=== PATIENT | female | born 1935 | race Caucasian/White ===

== ENCOUNTER 2018-07-17 10:49 | Emergency (ER) | payer MEDICARE, OTHER ==
[2018-07-17 11:09] VITALS: RESP 18
--- NOTE | 2018-07-17 12:12 | ED ---
General Adult HPI <Mitchell Henriquez - Last Filed: 07/17/18 13:58> - General Source: patient, EMS, RN notes reviewed Mode of arrival: EMS Limitations: no limitations <Jack Bennett - Last Filed: 07/17/18 14:25> - General Chief complaint: Dizziness Stated complaint: Diff Breathing Time Seen by Provider: 07/17/18 11:11 - History of Present Illness Initial comments: 82-year-old female presents emergency Department with chief complaint of dizziness, shortness of breath and palpitations. Patient states she's also has some chest discomfort. Patient states that she is currently in rehab for right knee replacement. Patient states this was performed by Dr. Parish. Patient states that she is currently on Coumadin. Patient states when she was in the hospital at [facility] she was diagnosed with A. fib. Patient states he she was given amiodarone. Patient is also on metoprolol though she's been having hypotension so she was lower on her medications. Patient sent in for evaluation found to be in A. fib RVR by EMS and on initial exam in the emergency department. (Jack Bennett) - Related Data Home Medications Medication Instructions Recorded Confirmed Cyclobenzaprine [Flexeril] 10 mg PO TID PRN 07/17/18 07/17/18 Hydrocodone/Acetaminophen [[place] 1 tab PO TID PRN 07/17/18 07/17/18 10-325] Latanoprost [Xalatan 0.005%] 1 drop BOTH EYES HS 07/17/18 07/17/18 Lisinopril [Zestril] 10 mg PO DAILY 07/17/18 07/17/18 Metoprolol Succinate [Toprol Xl] 25 mg PO DAILY 07/17/18 07/17/18 Warfarin Sodium 3 mg PO DAILY@1800 07/17/18 07/17/18 Allergies Allergy/AdvReac Type Severity Reaction Status Date / Time No Known Allergies Allergy Verified 07/17/18 12:26 Review of Systems ROS Other: All systems not noted in ROS Statement are negative. <Mitchell Henriquez - Last Filed: 07/17/18 13:58> ROS Other: All systems not noted in ROS Statement are negative. <Jack Bennett - Last Filed: 07/17/18 14:25> ROS Statement: Those systems with pertinent positive or pertinent negative responses have been documented in the HPI. Past Medical History Past Medical History: Cancer Additional Past Medical History / Comment(s): CA polyp in colon History of Any Multi-Drug Resistant Organisms: None Reported Past Surgical History: Coronary Bypass/CABG, Heart Catheterization With Stent, Hysterectomy, Orthopedic Surgery Additional Past Surgical History / Comment(s): knee surgery 2019 Past Psychological History: No Psychological Hx Reported Smoking Status: Former smoker Past Alcohol Use History: Occasional, Rare Past Drug Use History: None Reported <Jack Bennett - Last Filed: 07/17/18 14:25> General Exam Limitations: no limitations General appearance: alert, in no apparent distress Head exam: Present: atraumatic, normocephalic, normal inspection Respiratory exam: Present: normal lung sounds bilaterally. Absent: respiratory distress, wheezes, rales, rhonchi, stridor Cardiovascular Exam: Present: tachycardia, irregular rhythm, normal heart sounds. Absent: regular rate, normal rhythm, systolic murmur, diastolic murmur , rubs, gallop, clicks GI/Abdominal exam: Present: soft, normal bowel sounds. Absent: distended, tenderness, guarding, rebound, rigid Extremities exam: Present: other (Right knee healing incision noted, no erythema pedal pulses equal bilaterally no leg swelling) Skin exam: Present: warm, dry, intact, normal color. Absent: rash <Jack Bennett - Last Filed: 07/17/18 14:25> Course <Mitchell Henriquez - Last Filed: 07/17/18 13:58> <Jack Bennett - Last Filed: 07/17/18 14:25> Vital Signs 07/17/18 07/17/18 10:57 14:00 Temperature 98.1 F Pulse Rate 65 84 Respiratory 18 18 Rate Blood Pressure 114/58 123/63 O2 Sat by Pulse 99 100 Oximetry - Reevaluation(s) Reevaluation #1: 07/17/18 12:11 Patient was in A. fib RVR on monitor. Patient converted while in the room doing exam. (Jack Bennett) EKG Findings - EKG Comments: EKG Findings:: EKG performed at 11:39 normal sinus rhythm with left axis deviation left bundle, rate of 98 AR 160 QRS 122 QT/QTC 392/479 <Jack Bennett - Last Filed: 07/17/18 14:25> Medical Decision Making - Lab Data Result diagrams: 07/17/18 11:55 07/17/18 11:55 <Mitchell Henriquez - Last Filed: 07/17/18 13:58> - Lab Data Result diagrams: 07/17/18 11:55 07/17/18 11:55 <Jack Bennett - Last Filed: 07/17/18 14:25> - Medical Decision Making Patient reevaluated and reexamined by myself, Dr. Henriquez. Patient resting comfortably in bed. Normal sinus rhythm on the monitor. I do agree with the findings. This includes all diagnostic interpretation's and treatment plan. Case was discussed in detail with Dr. Islas, covering for Dr. Cortez, who will admit. Blood transfusion has been ordered. (Mitchell Henriquez) - Lab Data Lab Results 07/17/18 07/17/18 07/17/18 Range/Units 11:55 11:55 11:55 WBC 16.0 H (3.8-10.6) k/uL RBC 1.69 L (3.80-5.40) m/uL Hgb 5.5 L* D (11.4-16.0) gm/dL Hct 16.1 L* (34.0-46.0) % MCV 95.4 D (80.0-100.0) fL MCH 32.5 (25.0-35.0) pg MCHC 34.0 (31.0-37.0) g/dL RDW 13.3 (11.5-15.5) % Plt Count 586 H D (150-450) k/uL Neutrophils % 81 % Lymphocytes % 11 % Monocytes % 4 % Eosinophils % 4 % Basophils % 0 % Neutrophils # 13.0 H (1.3-7.7) k/uL Lymphocytes # 1.7 (1.0-4.8) k/uL Monocytes # 0.6 (0-1.0) k/uL Eosinophils # 0.6 (0-0.7) k/uL Basophils # 0.0 (0-0.2) k/uL PT (9.0-12.0) sec INR (<1.2) APTT (22.0-30.0) sec Sodium 140 (137-145) mmol/L Potassium 4.9 (3.5-5.1) mmol/L Chloride 105 (98-107) mmol/L Carbon Dioxide 27 (22-30) mmol/L Anion Gap 8 mmol/L BUN 19 H (7-17) mg/dL Creatinine 0.98 (0.52-1.04) mg/dL Est GFR (CKD-EPI)AfAm 62 (>60 ml/min/1.73 sqM) Est GFR (CKD-EPI)NonAf 54 (>60 ml/min/1.73 sqM) Glucose 120 H (74-99) mg/dL Calcium 9.6 (8.4-10.2) mg/dL Magnesium 2.4 H (1.6-2.3) mg/dL Total Bilirubin 0.7 (0.2-1.3) mg/dL AST 18 (14-36) U/L ALT 24 (9-52) U/L Alkaline Phosphatase 92 (38-126) U/L Total Creatine Kinase 35 (30-135) U/L CK-MB (CK-2) 1.3 (0.0-2.4) ng/mL CK-MB (CK-2) Rel Index 3.7 Troponin I 0.046 H* (0.000-0.034) ng/mL Total Protein 6.3 (6.3-8.2) g/dL Albumin 3.7 (3.5-5.0) g/dL Stool Occult Blood (Negative) Blood Type Blood Type Recheck Antibody Screen Spec Expiration Date 07/17/18 07/17/18 07/17/18 Range/Units 11:55 11:55 12:50 WBC (3.8-10.6) k/uL RBC (3.80-5.40) m/uL Hgb (11.4-16.0) gm/dL Hct (34.0-46.0) % MCV (80.0-100.0) fL MCH (25.0-35.0) pg MCHC (31.0-37.0) g/dL RDW (11.5-15.5) % Plt Count (150-450) k/uL Neutrophils % % Lymphocytes % % Monocytes % % Eosinophils % % Basophils % % Neutrophils # (1.3-7.7) k/uL Lymphocytes # (1.0-4.8) k/uL Monocytes # (0-1.0) k/uL Eosinophils # (0-0.7) k/uL Basophils # (0-0.2) k/uL PT 21.8 H (9.0-12.0) sec INR 2.2 H (<1.2) APTT 34.1 H (22.0-30.0) sec Sodium (137-145) mmol/L Potassium (3.5-5.1) mmol/L Chloride (98-107) mmol/L Carbon Dioxide (22-30) mmol/L Anion Gap mmol/L BUN (7-17) mg/dL Creatinine (0.52-1.04) mg/dL Est GFR (CKD-EPI)AfAm (>60 ml/min/1.73 sqM) Est GFR (CKD-EPI)NonAf (>60 ml/min/1.73 sqM) Glucose (74-99) mg/dL Calcium (8.4-10.2) mg/dL Magnesium (1.6-2.3) mg/dL Total Bilirubin (0.2-1.3) mg/dL AST (14-36) U/L ALT (9-52) U/L Alkaline Phosphatase (38-126) U/L Total Creatine Kinase (30-135) U/L CK-MB (CK-2) (0.0-2.4) ng/mL CK-MB (CK-2) Rel Index Troponin I (0.000-0.034) ng/mL Total Protein (6.3-8.2) g/dL Albumin (3.5-5.0) g/dL Stool Occult Blood Negative (Negative) Blood Type B Positive Blood Type Recheck CABO Indicated Antibody Screen NEGATIVE Spec Expiration Date 07/20/2018 - 4667 Critical Care Time <Mitchell Henriquez - Last Filed: 07/17/18 13:58> Critical Care Time: Yes Total Critical Care Time: 35 <Jack Bennett - Last Filed: 07/17/18 14:25> Critical Care Time: Critical care time including 35 minutes were use this is include initial exam, diagnostic including laboratory, EKG, chest x-ray. Patient's found to be initially in A. fib with RVR though converted with no treatment at this time. Patient's found to be severely anemic with hemoglobin 5.5, Hemoccult was obtained which is negative. Patient is anticoagulated though no signs of bleeding. Patient be transfused 2 units at this time. Patient will have repeat H&H. Case discussed with admitting physician. Coumadin will be held at this time. Patient will have cardiology evaluation for proximal A. fib. Patient placed on telemetry for proximal A. fib and further monitoring. Family , patient updated on results. (Jack Bennett) Disposition <Mitchell Henriquez - Last Filed: 07/17/18 13:58> <Jack Bennett - Last Filed: 07/17/18 14:25> Clinical Impression: Anemia, Paroxysmal atrial fibrillation with rapid ventricular response Disposition: ADMITTED IP TO THIS HOSP Condition: Fair Referrals: Daniel Fernandez MD [Primary Care Provider] - 1-2 days
--- NOTE | 2018-07-17 12:26 | XR ---
EXAMINATION TYPE: XR chest 2V DATE OF EXAM: 07/17/2018 COMPARISON: NONE HISTORY: Syncope and shortness of breath today. TECHNIQUE: Frontal and lateral views of the chest are obtained. FINDINGS: There is chronic parenchymal change with upper lung pleural/parenchymal scarring most promi nent in the apices. There is no suspicious focal air space opacity or pneumothorax seen. Chronic blun ting bilateral posterior and right lateral costophrenic angles suggest small to tiny effusions. The c ardiac silhouette size is enlarged. The osseous structures are intact. IMPRESSION: Cardiomegaly and chronic brachial changes with small to tiny right greater than left pleu ral effusions but no suspicious focal acute infiltrate.
[2018-07-17 12:41] LABS: Basophils % (A) 0 %; Eosinophils # (A) 0.6 k/uL (0-0.7); Eosinophils % (A) 4 %; Lymphocytes # (A) 1.7 k/uL (1.0-4.8); Lymphocytes % (A) 11 %; MCH 32.5 pg (25.0-35.0); Mean Platelet Volume 6.6; Monocytes # (A) 0.6 k/uL (0-1.0); Monocytes % (A) 4 %; Neutrophils % (A) 81 %; RBC 1.69 m/uL (3.80-5.40); RDW 13.3 % (11.5-15.5)
[2018-07-17 12:46] LABS: HGB 5.5 gm/dL (11.4-16.0)
[2018-07-17 12:47] LABS: HCT 16.1 % (34.0-46.0); MCV 95.4 fL (80.0-100.0); Platelet Count 586 k/uL (150-450)
[2018-07-17 12:57] LABS: INR 2.2 (<1.2); Partial Thromboplastin Time 34.1 sec (22.0-30.0); Prothrombin Time 21.8 sec (9.0-12.0)
[2018-07-17 12:59] LABS: Albumin 3.7 g/dL (3.5-5.0); Calcium 9.6 mg/dL (8.4-10.2); Magnesium 2.4 mg/dL (1.6-2.3); Potassium 4.9 mmol/L (3.5-5.1); Total Bilirubin 0.7 mg/dL (0.2-1.3); Total Protein 6.3 g/dL (6.3-8.2)
[2018-07-17 13:20] LABS: Creatine Kinase MB 1.3 ng/mL (0.0-2.4)
[2018-07-17 13:22] LABS: Troponin I 0.046 ng/mL (0.000-0.034)
[2018-07-17] MEDS ORDERED: NITROGLYCERIN SL TABS 0.4 MG TAB SUBLINGUAL PRN (14:25)
[2018-07-17] MEDS ORDERED: PHYTONADIONE ORAL 5 MG/5 ML ORAL.SYRG PO STA (15:29)
--- NOTE | 2018-07-17 15:44 | ED ---
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 case discussed with [facility] accepts transfer. - Lab Data Result diagrams: 07/17/18 11:55 07/17/18 11:55 Lab Results 07/17/18 07/17/18 07/17/18 Range/Units 11:55 11:55 11:55 WBC 16.0 H (3.8-10.6) k/uL RBC 1.69 L (3.80-5.40) m/uL Hgb 5.5 L* D (11.4-16.0) gm/dL Hct 16.1 L* (34.0-46.0) % MCV 95.4 D (80.0-100.0) fL MCH 32.5 (25.0-35.0) pg MCHC 34.0 (31.0-37.0) g/dL RDW 13.3 (11.5-15.5) % Plt Count 586 H D (150-450) k/uL Neutrophils % 81 % Lymphocytes % 11 % Monocytes % 4 % Eosinophils % 4 % Basophils % 0 % Neutrophils # 13.0 H (1.3-7.7) k/uL Lymphocytes # 1.7 (1.0-4.8) k/uL Monocytes # 0.6 (0-1.0) k/uL Eosinophils # 0.6 (0-0.7) k/uL Basophils # 0.0 (0-0.2) k/uL PT (9.0-12.0) sec INR (<1.2) APTT (22.0-30.0) sec Sodium 140 (137-145) mmol/L Potassium 4.9 (3.5-5.1) mmol/L Chloride 105 (98-107) mmol/L Carbon Dioxide 27 (22-30) mmol/L Anion Gap 8 mmol/L BUN 19 H (7-17) mg/dL Creatinine 0.98 (0.52-1.04) mg/dL Est GFR (CKD-EPI)AfAm 62 (>60 ml/min/1.73 sqM) Est GFR (CKD-EPI)NonAf 54 (>60 ml/min/1.73 sqM) Glucose 120 H (74-99) mg/dL Calcium 9.6 (8.4-10.2) mg/dL Magnesium 2.4 H (1.6-2.3) mg/dL Total Bilirubin 0.7 (0.2-1.3) mg/dL AST 18 (14-36) U/L ALT 24 (9-52) U/L Alkaline Phosphatase 92 (38-126) U/L Total Creatine Kinase 35 (30-135) U/L CK-MB (CK-2) 1.3 (0.0-2.4) ng/mL CK-MB (CK-2) Rel Index 3.7 Troponin I 0.046 H* (0.000-0.034) ng/mL Total Protein 6.3 (6.3-8.2) g/dL Albumin 3.7 (3.5-5.0) g/dL Stool Occult Blood (Negative) Blood Type Blood Type Confirm Blood Type Recheck Antibody Screen Crossmatch Spec Expiration Date 07/17/18 07/17/18 07/17/18 Range/Units 11:55 11:55 12:50 WBC (3.8-10.6) k/uL RBC (3.80-5.40) m/uL Hgb (11.4-16.0) gm/dL Hct (34.0-46.0) % MCV (80.0-100.0) fL MCH (25.0-35.0) pg MCHC (31.0-37.0) g/dL RDW (11.5-15.5) % Plt Count (150-450) k/uL Neutrophils % % Lymphocytes % % Monocytes % % Eosinophils % % Basophils % % Neutrophils # (1.3-7.7) k/uL Lymphocytes # (1.0-4.8) k/uL Monocytes # (0-1.0) k/uL Eosinophils # (0-0.7) k/uL Basophils # (0-0.2) k/uL PT 21.8 H (9.0-12.0) sec INR 2.2 H (<1.2) APTT 34.1 H (22.0-30.0) sec Sodium (137-145) mmol/L Potassium (3.5-5.1) mmol/L Chloride (98-107) mmol/L Carbon Dioxide (22-30) mmol/L Anion Gap mmol/L BUN (7-17) mg/dL Creatinine (0.52-1.04) mg/dL Est GFR (CKD-EPI)AfAm (>60 ml/min/1.73 sqM) Est GFR (CKD-EPI)NonAf (>60 ml/min/1.73 sqM) Glucose (74-99) mg/dL Calcium (8.4-10.2) mg/dL Magnesium (1.6-2.3) mg/dL Total Bilirubin (0.2-1.3) mg/dL AST (14-36) U/L ALT (9-52) U/L Alkaline Phosphatase (38-126) U/L Total Creatine Kinase (30-135) U/L CK-MB (CK-2) (0.0-2.4) ng/mL CK-MB (CK-2) Rel Index Troponin I (0.000-0.034) ng/mL Total Protein (6.3-8.2) g/dL Albumin (3.5-5.0) g/dL Stool Occult Blood Negative (Negative) Blood Type B Positive Blood Type Confirm Blood Type Recheck CABO Indicated Antibody Screen NEGATIVE Crossmatch See Detail Spec Expiration Date 07/20/2018 - 1253 07/17/18 Range/Units 14:05 WBC (3.8-10.6) k/uL RBC (3.80-5.40) m/uL Hgb (11.4-16.0) gm/dL Hct (34.0-46.0) % MCV (80.0-100.0) fL MCH (25.0-35.0) pg MCHC (31.0-37.0) g/dL RDW (11.5-15.5) % Plt Count (150-450) k/uL Neutrophils % % Lymphocytes % % Monocytes % % Eosinophils % % Basophils % % Neutrophils # (1.3-7.7) k/uL Lymphocytes # (1.0-4.8) k/uL Monocytes # (0-1.0) k/uL Eosinophils # (0-0.7) k/uL Basophils # (0-0.2) k/uL PT (9.0-12.0) sec INR (<1.2) APTT (22.0-30.0) sec Sodium (137-145) mmol/L Potassium (3.5-5.1) mmol/L Chloride (98-107) mmol/L Carbon Dioxide (22-30) mmol/L Anion Gap mmol/L BUN (7-17) mg/dL Creatinine (0.52-1.04) mg/dL Est GFR (CKD-EPI)AfAm (>60 ml/min/1.73 sqM) Est GFR (CKD-EPI)NonAf (>60 ml/min/1.73 sqM) Glucose (74-99) mg/dL Calcium (8.4-10.2) mg/dL Magnesium (1.6-2.3) mg/dL Total Bilirubin (0.2-1.3) mg/dL AST (14-36) U/L ALT (9-52) U/L Alkaline Phosphatase (38-126) U/L Total Creatine Kinase (30-135) U/L CK-MB (CK-2) (0.0-2.4) ng/mL CK-MB (CK-2) Rel Index Troponin I (0.000-0.034) ng/mL Total Protein (6.3-8.2) g/dL Albumin (3.5-5.0) g/dL Stool Occult Blood (Negative) Blood Type Blood Type Confirm B Positive Blood Type Recheck Antibody Screen Crossmatch Spec Expiration Date Disposition Clinical Impression: Anemia, Paroxysmal atrial fibrillation with rapid ventricular response Disposition: OTHER INSTITUTION NOT DEFINED Condition: Fair Referrals: Daniel Fernandez MD [Primary Care Provider] - 1-2 days - Out of Hospital Transfer - Req. Specs Out of Hospital Transfer - Requested Specifics: Other Emergency Center ([facility]) Procedures - [place] Protocol (Time Out) Nurse: Iva Flores
[2018-07-17 17:05] VITALS: BP 123/72; PULSE 88; TEMP 98.4
== END 2018-07-17 17:05 | disposition other institution (70) ==
LOC: EC 10:49 → 3SCARD 13:59 → UNDOADMIN 13:59 → EC 17:05
DX: I48.0 Paroxysmal atrial fibrillation (principal); D64.9 Anemia, unspecified; Z85.038 Personal history of other malignant neoplasm of large intestine; Z87.891 Personal history of nicotine dependence; Z79.01 Long term (current) use of anticoagulants; Z79.899 Other long term (current) drug therapy; Z95.1 Presence of aortocoronary bypass graft; Z95.5 Presence of coronary angioplasty implant and graft; Z96.651 Presence of right artificial knee joint
CPT/HCPCS: 36415; 93005; 86900; 86901; 80053; 82550; 82553; 83735; 84484; 85025; 85610; 85730; 86850; 86920; 82272; 71046; 99291; P9016

== ENCOUNTER 2019-05-09 22:43 | Emergency (ER) | payer MEDICARE, OTHER ==
[2019-05-09 22:49] VITALS: BP 179/69; PULSE 58; RESP 20; TEMP 97.9
[2019-05-09] MEDS ORDERED: LIDOCAINE/EPINEPHR/TETRACAINE 5 ML BOTTLE TOPICAL ONE (22:58)
--- NOTE | 2019-05-09 23:36 | ED ---
General Adult HPI - General Chief complaint: Wound/Laceration Stated complaint: Arm Laceration Time Seen by Provider: 05/09/19 22:50 Source: patient, RN notes reviewed Mode of arrival: ambulatory Limitations: no limitations - History of Present Illness Initial comments: 83-year-old female presents to the emergency department for a chief complaint of laceration to the left arm. This occurred about 8 hours ago. She was opening a screen door when it caught the landing hit her arm. No other injuries. Patient is up-to-date on tetanus Within the past year. Patient has no other complaints at this time including shortness of breath, chest pain, abdominal pain, nausea or vomiting, headache, or visual changes. - Related Data Home Medications Medication Instructions Recorded Confirmed Cyclobenzaprine [Flexeril] 10 mg PO TID PRN 07/17/18 07/17/18 Hydrocodone/Acetaminophen [[place] 1 tab PO TID PRN 07/17/18 07/17/18 10-325] Latanoprost [Xalatan 0.005%] 1 drop BOTH EYES HS 07/17/18 07/17/18 Lisinopril [Zestril] 10 mg PO DAILY 07/17/18 07/17/18 Metoprolol Succinate [Toprol Xl] 25 mg PO DAILY 07/17/18 07/17/18 Warfarin Sodium 3 mg PO DAILY@1800 07/17/18 07/17/18 Allergies Allergy/AdvReac Type Severity Reaction Status Date / Time amoxicillin [From Augmentin] Allergy Swelling Verified 05/09/19 22:50 clavulanic acid Allergy Swelling Verified 05/09/19 22:50 [From Augmentin] Review of Systems ROS Statement: Those systems with pertinent positive or pertinent negative responses have been documented in the HPI. ROS Other: All systems not noted in ROS Statement are negative. Past Medical History Past Medical History: Cancer Additional Past Medical History / Comment(s): CA polyp in colon History of Any Multi-Drug Resistant Organisms: None Reported Past Surgical History: Coronary Bypass/CABG, Heart Catheterization With Stent, Hysterectomy, Orthopedic Surgery Additional Past Surgical History / Comment(s): knee surgery 2019 Past Psychological History: No Psychological Hx Reported Smoking Status: Former smoker Past Alcohol Use History: Occasional, Rare Past Drug Use History: None Reported General Exam Limitations: no limitations General appearance: alert, in no apparent distress Head exam: Present: atraumatic, normocephalic, normal inspection Eye exam: Present: normal appearance, PERRL, EOMI. Absent: scleral icterus, conjunctival injection, periorbital swelling ENT exam: Present: normal exam, mucous membranes moist Neck exam: Present: normal inspection. Absent: tenderness, meningismus, lymphadenopathy Respiratory exam: Present: normal lung sounds bilaterally. Absent: respiratory distress, wheezes, rales, rhonchi, stridor Cardiovascular Exam: Present: regular rate, normal rhythm, normal heart sounds. Absent: systolic murmur, diastolic murmur, rubs, gallop, clicks Extremities exam: Present: other (She has a 4 cm skin tear noted to the dorsal left mid forearm. Neurovascular status intact, radial pulse 2+) Course Vital Signs 05/09/19 22:47 Temperature 97.9 F Pulse Rate 58 L Respiratory 20 Rate Blood Pressure 179/69 O2 Sat by Pulse 99 Oximetry Medical Decision Making - Medical Decision Making She has a very superficial 4 cm skin tear of the left dorsal forearm. Patient minimal bleeding from this area. Wound was irrigated. Let solution was applied. Bleeding controlled. I was unable to approximate the wound margins given timeframe of skin tear occurring. Steri-Strips were applied to cover the open area. Discussed signs of infection and return parameters. Discussed returning if she has any worsening symptoms. Disposition Clinical Impression: Skin tear Disposition: HOME SELF-CARE Condition: Good Instructions (If sedation given, give patient instructions): Steristrips (ED) Additional Instructions: Please try to keep area dry. Let Steri-Strips fall off on their own. Monitor for any signs of infection such as spreading or streaking redness, drainage, or fever return to the emergency department. Otherwise follow-up with primary care for a wound recheck in 1-2 days. Is patient prescribed a controlled substance at d/c from ED?: No Referrals: Daniel Fernandez MD [Primary Care Provider] - 1-2 days Time of Disposition: 23:37
== END 2019-05-09 23:42 | disposition home or self-care (01) ==
LOC: EC 22:43
DX: S41.112A Laceration without foreign body of left upper arm, initial encounter (principal); Z79.01 Long term (current) use of anticoagulants; Z79.899 Other long term (current) drug therapy; Z88.0 Allergy status to penicillin; Z88.8 Allergy status to other drugs, medicaments and biological substances; Z95.5 Presence of coronary angioplasty implant and graft; Z95.1 Presence of aortocoronary bypass graft; Z87.891 Personal history of nicotine dependence; Z86.010 Personal history of colon polyps; W26.8XXA Contact with other sharp object(s), not elsewhere classified, initial encounter; Y93.89 Activity, other specified; Y92.009 Unspecified place in unspecified non-institutional (private) residence as the place of occurrence of the external cause
CPT/HCPCS: 99282

== ENCOUNTER → 2020-11-17 | Outpatient (CLI) | payer MEDICARE, OTHER ==
--- NOTE | 2020-11-17 16:08 | US ---
EXAMINATION TYPE: US venous doppler duplex LE RT DATE OF EXAM: 11/17/2020 3:51 PM COMPARISON: NONE CLINICAL HISTORY: I80.01 THROMBOPHLEBITIS OF SUPERFICIAL VEINS OF RT LOWER EXT. SIDE PERFORMED: Right TECHNIQUE: The lower extremity deep venous system is examined utilizing real time linear array sonog navya with graded compression, doppler sonography and color-flow sonography. VESSELS IMAGED: Common Femoral Vein Deep Femoral Vein Greater Saphenous Vein * Femoral Vein Popliteal Vein Small Saphenous Vein * Proximal Calf Veins (* superficial vessels) Right Leg: Negative for DVT No abnormality visualized at the patient's area of redness, right calf. Grayscale, color doppler, spectral doppler imaging performed of the deep veins of the right lower ext remity. There is normal flow, compressibility, vascular waveforms. IMPRESSION: No ultrasound evidence for acute DVT in the right lower extremity.
== END | disposition home or self-care (01) ==
LOC: RADUSWWP 15:27
PROVIDERS: ATTEND Internal Medicine
DX: I80.01 Phlebitis and thrombophlebitis of superficial vessels of right lower extremity (principal)

== ENCOUNTER → 2022-10-25 | Outpatient (CLI) | payer MEDICARE, OTHER ==
--- NOTE | 2022-10-26 12:59 | US ---
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 EXAM MEASUREMENTS: Right Kidney: 9.7 x 3.9 x 3.8 cm Left Kidney: 9.3 x 4.0 x 3.1 cm Right Kidney: No hydronephrosis or masses seen Left Kidney: Limited due to bowel gas. No hydronephrosis seen. Bladder: Partial distention of the bladder limits its evaluation. Bilateral Jets seen no IMPRESSION: No hydronephrosis.
== END | disposition home or self-care (01) ==
LOC: RADUSWWP 16:27
PROVIDERS: ATTEND Family Medicine
DX: N18.32 Chronic kidney disease, stage 3b (principal)
CPT/HCPCS: 76770

== ENCOUNTER 2024-12-05 08:48 | Emergency (ER) | payer MEDICARE, OTHER ==
[2024-12-05 08:54] VITALS: RESP 18
--- NOTE | 2024-12-05 09:30 | ED ---
General Adult HPI <Emelina Willams - Last Filed: 12/05/24 14:56> - General Source: patient, family, RN notes reviewed, old records reviewed Mode of arrival: wheelchair Limitations: no limitations <Oscar Hernandez - Last Filed: 12/05/24 15:36> - General Chief complaint: Wound/Laceration Stated complaint: Right foot injury, on blood thinners Time Seen by Provider: 12/05/24 09:00 - History of Present Illness Initial comments: Patient is a 88-year-old female who presents Emergency Department complaining of a laceration to the right lateral ankle. A glass fell at home and broke with a glass shard cutting her right ankle. She is on Eliquis for atrial fibrillation. Bleeding began at home and presents for further evaluation. Injury occurred within the last hour. She denies any lightheadedness or weakness. Denies any other symptoms. Did not take her normal blood pressure and antiarrhythmic medications this morning. Presents for further evaluation at this time. States the glass was in normal drinking glass and not heavy. Did not fall or hit her head. No other injuries. Is up-to-date on tetanus. (Oscar Hernandez) - Related Data Home Medications Medication Instructions Recorded Confirmed Latanoprost [Xalatan 0.005%] 1 drop BOTH EYES HS 07/17/18 12/05/24 Amiodarone [Cordarone] 100 mg PO DAILY 01/04/23 12/05/24 Apixaban [Eliquis] 2.5 mg PO BID 01/04/23 12/05/24 Aspirin 81 mg PO DAILY 01/04/23 12/05/24 Atorvastatin [Lipitor] 10 mg PO DAILY 01/04/23 12/05/24 Furosemide [Lasix] 20 mg PO Q48H 01/04/23 12/05/24 Gabapentin [Neurontin] 100 tab PO DIRECTED 01/04/23 12/05/24 Metoprolol Succinate (ER) [Toprol 25 mg PO DAILY 01/04/23 12/05/24 XL] Losartan/Hydrochlorothiazide 1 tab PO DAILY 12/05/24 12/05/24 [Losartan-Hctz 100-25 mg Tab] Meclizine [Antivert] 12.5 mg PO BID PRN 12/05/24 12/05/24 Allergies Allergy/AdvReac Type Severity Reaction Status Date / Time amoxicillin [From Augmentin] Allergy Swelling Verified 12/05/24 11:33 clavulanic acid Allergy Swelling Verified 12/05/24 11:33 [From Augmentin] Review of Systems ROS Other: All systems not noted in ROS Statement are negative. <Emelina Willams - Last Filed: 12/05/24 14:56> ROS Other: All systems not noted in ROS Statement are negative. <Oscar Hernandez - Last Filed: 12/05/24 15:36> ROS Statement: Those systems with pertinent positive or pertinent negative responses have been documented in the HPI. Review of Systems: CONST: Denies fever EYES: Denies blurry vision ENT: Denies nasal congestion C/V: Denies Chest pain RESP: Denies shortness of breath GI: Denies abdominal pain : Denies dysuria SKIN: Endorses right ankle laceration MSK: Denies joint pain. NEURO: Denies headache (Oscar Hernandez) Past Medical History Past Medical History: Cancer Additional Past Medical History / Comment(s): CA polyp in colon History of Any Multi-Drug Resistant Organisms: None Reported Past Surgical History: Coronary Bypass/CABG, Heart Catheterization With Stent, Hysterectomy, Orthopedic Surgery Additional Past Surgical History / Comment(s): knee surgery 2019 Past Psychological History: No Psychological Hx Reported Smoking Status: Former smoker Past Alcohol Use History: Occasional Past Drug Use History: None Reported <Oscar Hernandez - Last Filed: 12/05/24 15:36> General Exam Limitations: no limitations <Oscar Hernandez - Last Filed: 12/05/24 15:36> - General Exam Comments Initial Comments: General: Appears in mild distress secondary to laceration. HEAD: Normal with no signs of head trauma. EYES: EOMI. ENT: Hearing grossly intact. RESPIRATORY: No respiratory distress. C/V: Regular rate and rhythm. ABD: Abdomen is nondistended. EXT: No obvious deformity. Neurovascular intact throughout the right lower extremity. SKIN: Patient has an obvious oozing laceration to the lateral aspect over the lateral malleolus of the right ankle. It is approximately 6 cm in length. Minimally gaping. NEURO: Alert and oriented. (Oscar Hernandez) Course Vital Signs 12/05/24 12/05/24 08:49 11:46 Temperature 97.6 F 97.8 F Pulse Rate 58 L 64 Respiratory 18 18 Rate Blood Pressure 177/71 158/76 O2 Sat by Pulse 98 98 Oximetry Procedures - Laceration Laceration #1 Consent Obtained: verbal consent Indication: laceration Site: foot Size (cm): 6 Description: linear Depth: simple, single layer Anesthetic Used: lidocaine 1%, with epi Anesthesia Technique: local infiltration Amount (mls): 5 Pre-repair: wound explored, irrigated extensively Type of Sutures: nylon Size of Sutures: 5-0 Number of Sutures: 5 Technique: simple, interrupted <Emelina Willams - Last Filed: 12/05/24 14:56> Medical Decision Making <Oscar Hernandez - Last Filed: 12/05/24 15:36> - Medical Decision Making Was pt. sent in by a medical professional or institution (VIDAL Chakraborty, TAXICAB STARTER, urgent care, hospital, or usp...) When possible be specific @ -No Did you speak to anyone other than the patient for history (EMS, parent, family, police, friend...)? What history was obtained from this source @ -No Did you review nursing and triage notes (agree or disagree)? Why? @ -I reviewed and agree with nursing and triage notes Were old charts reviewed (outside hosp., previous admission, EMS record, old EKG, old radiological studies, urgent care reports/EKG's, usp records)? Report findings @ -No old charts were reviewed Differential Diagnosis (chest pain, altered mental status, abdominal pain women, abdominal pain men, vaginal bleeding, weakness, fever, dyspnea, syncope, headache, dizziness, GI bleed, back pain, seizure, CVA, palpatations, mental health, musculoskeletal)? @ -Laceration, retained foreign body, bleeding on blood thinner. This this is nonocclusive. EKG interpreted by me (3pts min.). @ -None done X-rays interpreted by me (1pt min.). @ -X-ray reveals no obvious acute traumatic injury of the right ankle. CT interpreted by me (1pt min.). @ -None done U/S interpreted by me (1pt. min.). @ -None done What testing was considered but not performed or refused? (CT, X-rays, U/S, labs)? Why? @ -None What meds were considered but not given or refused? Why? @ -None Did you discuss the management of the patient with other professionals (professionals i.e. , PA, TAXICAB STARTER, lab, RT, psych nurse, manager social media, family medicine resident, teacher, chief green officer, high risk case manager)? Give summary @ -No Was smoking cessation discussed for >3mins.? @ -No Was critical care preformed (if so, how long)? @ -No Were there social determinants of health that impacted care today? How? (Homelessness, low income, unemployed, alcoholism, drug addiction, transportation, low edu. Level, literacy, decrease access to med. care, detention, rehab)? @ -No Was there de-escalation of care discussed even if they declined (Discuss DNR or withdrawal of care, Hospice)? DNR status @ -No What co-morbidities impacted this encounter? (DM, HTN, Smoking, COPD, CAD, Cancer, CVA, ARF, Chemo, Hep., AIDS, mental health diagnosis, sleep apnea, morbid obesity)? @ -None Was patient admitted / discharged? Hospital course, mention meds given and route, prescriptions, significant lab abnormalities, going to OR and other pertinent info. @ -Based on patient's presentation and physical exam, presents with a laceration from a glass on blood thinners. Vitals are within acceptable limits. Patient does have an oozing at the site of a approximate 6 cm laceration over the lateral aspect of the right ankle. Lidocaine with epi was applied, a total of 5 mL as well as let gel. I have reordered her normal home morning medications. Bleeding did seem to improve and pressure dressing was applied. Patient will likely require sutures. Recommended we obtain an x-ray as well. She was in agreement this plan. X-ray shows no obvious acute process. Laceration closed by assisting midlevel provider. Patient will be discharged home at this time. She is up-to-date on tetanus. She was in agreement this plan. I instructed the patient to follow up with their PCP in the next 1-3 days. I explained that the patient should return to the emergency department if they experience any worsening symptoms. Strict return precautions were discussed with the patient. The patient expressed understanding of these instructions. I answered all questions that the patient had. The patient was discharged home in good condition with their prescriptions and follow up information. Undiagnosed new problem with uncertain prognosis? @ -No Drug Therapy requiring intensive monitoring for toxicity (Heparin, Nitro, Insulin, Cardizem)? @ -No Were any procedures done? @ -Laceration repair Diagnosis/symptom? @ -Laceration s/p repair with sutures Acute, or Chronic, or Acute on Chronic? @ -Acute Uncomplicated (without systemic symptoms) or Complicated (systemic symptoms)? @ -Uncomplicated Side effects of treatment? @ -No Exacerbation, Progression, or Severe Exacerbation? @ -No Poses a threat to life or bodily function? How? (Chest pain, [place], [place], pneumonia, PE, COPD, DKA, ARF, appy, cholecystitis, CVA, Diverticulitis, Homicidal, Suicidal, threat to staff... and all critical care pts) @ -Unlikely at this time (Oscar Hernandez) Disposition Is patient prescribed a controlled substance at d/c from ED?: No Time of Disposition: 11:31 <Emelina Willams - Last Filed: 12/05/24 14:56> Is patient prescribed a controlled substance at d/c from ED?: No <Oscar Hernandez - Last Filed: 12/05/24 15:36> Clinical Impression: Laceration Disposition: HOME SELF-CARE Instructions (If sedation given, give patient instructions): Care For Your Stitches (ED) Additional Instructions: Return to the emergency department with any new, worsening, or concerning symptoms and in 7-10 days for removal of your stitches. Referrals: Cheri Hart MD [Primary Care Provider] - 1-2 days
[2024-12-05] MEDS: METOPROLOL SUCCINATE (ER) 25 MG TAB.ER.24H PO STA (09:44)
[2024-12-05] MEDS: LIDOCAINE/EPINEPHR/TETRACAINE 5 ML BOTTLE TOPICAL ONE (09:45)
--- NOTE | 2024-12-05 09:53 | XR ---
EXAMINATION TYPE: XR ankle limited RT DATE OF EXAM: 12/05/2024 9:37 AM COMPARISON: None. CLINICAL INDICATION: Female, 88 years old with history of laceration. eval for foreign body, pain TECHNIQUE: 2 view(s) obtained. FINDINGS: No acute fracture or dislocation evident. Soft tissues appear normal. Laceration is not identified. N o significant soft tissue swelling. No radiopaque foreign bodies are evident. Calcaneal heel spurs ar e present. Vascular calcification is present. IMPRESSION: 1. No acute osseous abnormality post injury. 2. Calcaneal heel spurs. 3. No radiopaque foreign body identified. [facility], , 12/05/2024 9:50 AM
[2024-12-05] MEDS: LOSARTAN-HCTZ 50-12.5 MG 1 EACH TAB PO STA (10:04)
[2024-12-05] MEDS: AMIODARONE 100 MG TAB PO STA (10:04)
[2024-12-05 11:48] VITALS: BP 158/76; PULSE 64; TEMP 97.8
== END 2024-12-05 11:46 | disposition home or self-care (01) ==
LOC: EC 08:48
DX: S91.011A Laceration without foreign body, right ankle, initial encounter (principal); I48.91 Unspecified atrial fibrillation; Z79.01 Long term (current) use of anticoagulants; Z87.891 Personal history of nicotine dependence; Z88.0 Allergy status to penicillin; Z88.1 Allergy status to other antibiotic agents; W19.XXXA Unspecified fall, initial encounter; Y92.009 Unspecified place in unspecified non-institutional (private) residence as the place of occurrence of the external cause
CPT/HCPCS: 12002; 99283

== ENCOUNTER 2024-12-30 08:04 | Emergency (ER) | payer MEDICARE, OTHER ==
[2024-12-30 08:11] VITALS: RESP 18
--- NOTE | 2024-12-30 08:40 | ED ---
General Adult HPI - General Chief complaint: Extremity Injury, Lower Stated complaint: Right Foot Swelling Time Seen by Provider: 12/30/24 08:13 Source: patient, RN notes reviewed Mode of arrival: ambulatory Limitations: no limitations - History of Present Illness Initial comments: This is an 89-year-old female presenting to the emergency department for co ncerns of right foot pain after an injury that occurred on 06 December. Patient states that a broken glass accidentally caused a laceration to her right ankle and this area was sutured and cleaned. Patient saw her primary care provider on Tuesday where she was placed on cefuroxime that she started taking on Tuesday. She states that the right foot and ankle has not been improving in regard to infection as the area is still erythematous, edematous and painful to the touch. States that she has been taking antibiotics as prescribed. Denies purulent discharge from the area, fevers, chills, nausea or vomiting. Patient is on Eliquis. - Related Data Home Medications Medication Instructions Recorded Confirmed Latanoprost [Xalatan 0.005%] 1 drop BOTH EYES HS 07/17/18 12/05/24 Amiodarone [Cordarone] 100 mg PO DAILY 01/04/23 12/05/24 Apixaban [Eliquis] 2.5 mg PO BID 01/04/23 12/05/24 Aspirin 81 mg PO DAILY 01/04/23 12/05/24 Atorvastatin [Lipitor] 10 mg PO DAILY 01/04/23 12/05/24 Furosemide [Lasix] 20 mg PO Q48H 01/04/23 12/05/24 Gabapentin [Neurontin] 100 tab PO DIRECTED 01/04/23 12/05/24 Metoprolol Succinate (ER) [Toprol 25 mg PO DAILY 01/04/23 12/05/24 XL] Losartan/Hydrochlorothiazide 1 tab PO DAILY 12/05/24 12/05/24 [Losartan-Hctz 100-25 mg Tab] Meclizine [Antivert] 12.5 mg PO BID PRN 12/05/24 12/05/24 Previous Rx's Medication Instructions Recorded Sulfamethox-Tmp 800-160Mg [Bactrim 1 each PO Q12HR #20 tab 12/30/24 Ds] Allergies Allergy/AdvReac Type Severity Reaction Status Date / Time amoxicillin [From Augmentin] Allergy Swelling Verified 12/30/24 08:06 clavulanic acid Allergy Swelling Verified 12/30/24 08:06 [From Augmentin] Review of Systems ROS Statement: Those systems with pertinent positive or pertinent negative responses have been documented in the HPI. ROS Other: All systems not noted in ROS Statement are negative. Past Medical History Past Medical History: Cancer Additional Past Medical History / Comment(s): CA polyp in colon History of Any Multi-Drug Resistant Organisms: None Reported Past Surgical History: Coronary Bypass/CABG, Heart Catheterization With Stent, Hysterectomy, Orthopedic Surgery Additional Past Surgical History / Comment(s): knee surgery 2019 Past Psychological History: No Psychological Hx Reported Smoking Status: Former smoker Past Alcohol Use History: Occasional Past Drug Use History: None Reported General Exam Limitations: no limitations Neck exam: Present: normal inspection. Absent: tenderness, meningismus, lymphadenopathy Respiratory exam: Present: normal lung sounds bilaterally. Absent: respiratory distress, wheezes, rales, rhonchi, stridor Cardiovascular Exam: Present: regular rate, normal rhythm, normal heart sounds. Absent: systolic murmur, diastolic murmur, rubs, gallop, clicks GI/Abdominal exam: Present: soft, normal bowel sounds. Absent: distended, tenderness, guarding, rebound, rigid Left Ankle exam: Present: full ROM, tenderness, swelling, laceration. Absent: abrasion, ecchymosis, deformity Foot/Toe exam: Present: full ROM Neurovascular tendon exam: Present: no vascular compromise Back exam: Present: normal inspection Course Vital Signs 12/30/24 12/30/24 08:07 10:35 Temperature 97.7 F 97.8 F Pulse Rate 56 L 52 L Respiratory 18 18 Rate Blood Pressure 175/80 148/73 O2 Sat by Pulse 98 97 Oximetry Medical Decision Making - Medical Decision Making Was pt. sent in by a medical professional or institution (, PA, CRISIS INTERVENTION SPECIALIST, urgent care, hospital, or [facility]...) When possible be specific @ -No Did you speak to anyone other than the patient for history (EMS, parent, family, police, friend...)? What history was obtained from this source @ -No Did you review nursing and triage notes (agree or disagree)? Why? @ -I reviewed and agree with nursing and triage notes Were old charts reviewed (outside hosp., previous admission, EMS record, old EKG, old radiological studies, urgent care reports/EKG's, [facility] records)? Report findings @ -No old charts were reviewed Differential Diagnosis (chest pain, altered mental status, abdominal pain women, abdominal pain men, vaginal bleeding, weakness, fever, dyspnea, syncope, headache, dizziness, GI bleed, back pain, seizure, CVA, palpatations, mental health, musculoskeletal)? @ -Cellulitis, osteomyelitis, abrasion, laceration, this list is not all inclusive EKG interpreted by me (3pts min.). @ -none X-rays interpreted by me (1pt min.). @ -X-ray of the right foot reveals no acute fracture with no erosions to suggest osteomyelitis with dorsal forefoot soft tissue swelling CT interpreted by me (1pt min.). @ -None done U/S interpreted by me (1pt. min.). @ -Ultrasound imaging of the right lower extremity negative for DVT What testing was considered but not performed or refused? (CT, X-rays, U/S, labs)? Why? @ -None What meds were considered but not given or refused? Why? @ -None Did you discuss the management of the patient with other professionals (professionals i.e. , PA, CRISIS INTERVENTION SPECIALIST, lab, RT, psych nurse, aids social worker, general counselor, teacher, special officer automat, caseworker)? Give summary @ -No Was smoking cessation discussed for >3mins.? @ -No Was critical care preformed (if so, how long)? @ -No Were there social determinants of health that impacted care today? How? (Homelessness, low income, unemployed, alcoholism, drug addiction, transportation, low edu. Level, literacy, decrease access to med. care, penitentiary, rehab)? @ -No Was there de-escalation of care discussed even if they declined (Discuss DNR or withdrawal of care, Hospice)? DNR status @ -No What co-morbidities impacted this encounter? (DM, HTN, Smoking, COPD, CAD, Cancer, CVA, ARF, Chemo, Hep., AIDS, mental health diagnosis, sleep apnea, morbid obesity)? @ -None Was patient admitted / discharged? Hospital course, mention meds given and route, prescriptions, significant lab abnormalities, going to OR and other pertinent info. @ -Discharge. 89-year-old female presenting for complaints of right foot/ankle pain. There is noted edema of the right foot with a noted laceration with surrounding scabbing over the lateral foot with the abrasion having surrounding erythema with no purulence. Patient states that this area is mildly tender to the touch. She reports that the foot was 2 times more swollen yesterday as compared to today. Vitals are stable. Laboratory testing is unremarkable aside from mild dehydration with a creatinine of 2.06. Ultrasound imaging and x-ray is unremarkable. Patient will be treated with dose of Rocephin and outpatient prescription for Bactrim and is instructed to continue taking prescribed cefuroxime and follow-up with primary care provider. Strict return parameters discussed such as if area continues to worsen over the next 48 hours, patient develops fevers or chills, erythema continues to spread proximally. Case discussed with my attending Dr. Hernandez. Undiagnosed new problem with uncertain prognosis? @ -No Drug Therapy requiring intensive monitoring for toxicity (Heparin, Nitro, Insulin, Cardizem)? @ -No Were any procedures done? @ -No Diagnosis/symptom? @ -cellulitis Acute, or Chronic, or Acute on Chronic? @ -acute Uncomplicated (without systemic symptoms) or Complicated (systemic symptoms)? @ -uncomplicated Side effects of treatment? @ -No Exacerbation, Progression, or Severe Exacerbation? @ -No Poses a threat to life or bodily function? How? (Chest pain, [place], [place], pneumonia, PE, COPD, DKA, ARF, appy, cholecystitis, CVA, Diverticulitis, Homicidal, Suicidal, threat to staff... and all critical care pts) @ -No - Lab Data Result diagrams: 12/30/24 08:53 12/30/24 08:53 Lab Results 12/30/24 12/30/24 12/30/24 Range/Units 08:53 08:53 08:53 WBC 9.65 (4.50-10.00) 10*3/uL RBC 3.56 L (4.10-5.20) 10*6/uL Hgb 11.6 L (12.0-15.0) g/dL Hct 34.6 L (37.2-46.3) % MCV 97.2 H (80.0-97.0) fL MCH 32.6 H (27.0-32.0) pg MCHC 33.5 (32.0-37.0) g/dL Plt Count 182 (140-440) 10*3/uL MPV 12.0 (9.5-12.2) fL Immature Gran % (Auto) 0.3 % Neutrophils % 68.0 % Lymphocytes % 19.6 % Monocytes % 9.0 % Eosinophils % 2.6 % Basophils % 0.5 % Immature Gran # 0.03 (0.00-0.04) 10*3/uL Neutrophils # 6.56 (1.80-7.70) 10*3/uL Lymphocytes # 1.89 (0.90-5.00) 10*3/uL Monocytes # 0.87 (0.20-1.00) 10*3/uL Eosinophils # 0.25 (0.04-0.35) 10*3/uL Basophils # 0.05 (0.00-0.10) 10*3/uL Sodium 139 (137-145) mmol/L Potassium 4.9 (3.5-5.1) mmol/L Chloride 106 (98-107) mmol/L Carbon Dioxide 22 (22-30) mmol/L Anion Gap 11 mmol/L BUN 46 H (7-17) mg/dL Creatinine 2.06 H (0.52-1.04) mg/dL Est GFR (CKD-EPI)AfAm 24 (>60 ml/min/1.73 sqM) Est GFR (CKD-EPI)NonAf 21 (>60 ml/min/1.73 sqM) Glucose 98 (74-99) mg/dL Plasma Lactic Acid Shane 1.4 (0.7-2.0) mmol/L Calcium 9.6 (8.4-10.2) mg/dL Total Bilirubin 0.8 (0.2-1.3) mg/dL AST 27 (14-36) U/L ALT 13 (4-34) U/L Alkaline Phosphatase 70 (38-126) U/L C-Reactive Protein 0.8 (<1.0) mg/dL Total Protein 6.9 (6.3-8.2) g/dL Albumin 4.2 (3.5-5.0) g/dL Disposition Clinical Impression: Cellulitis of right ankle Disposition: HOME SELF-CARE Condition: Good Instructions (If sedation given, give patient instructions): Cellulitis (ED) Additional Instructions: Please return to the Emergency Department if symptoms worsen or any other concerns. Continue to take cefuroxime as prescribed and add on and take prescribed Bactrim. Continue to keep area clean and dry. Please follow-up with your primary care provider within the next 2 to 5 days. If you begin to experience fevers, chills, nausea, vomiting, purulent discharge from the site or redness extending up your leg please report back to the emergency department. Prescriptions: Sulfamethox-Tmp 800-160Mg [Bactrim Ds] 1 each PO Q12HR #20 tab Is patient prescribed a controlled substance at d/c from ED?: No Referrals: Cheri Hart MD [Primary Care Provider] - 1-2 days Time of Disposition: 10:18
[2024-12-30 08:58] LABS: Basophils # (A) 0.05 10*3/uL (0.00-0.10); Basophils % (A) 0.5 %; Eosinophils # (A) 0.25 10*3/uL (0.04-0.35); Eosinophils % (A) 2.6 %; HCT 34.6 % (37.2-46.3); HGB 11.6 g/dL (12.0-15.0); Lymphocytes # (A) 1.89 10*3/uL (0.90-5.00); Lymphocytes % (A) 19.6 %; MCH 32.6 pg (27.0-32.0); MCHC 33.5 g/dL (32.0-37.0); MCV 97.2 fL (80.0-97.0); Monocytes # (A) 0.87 10*3/uL (0.20-1.00); Monocytes % (A) 9.0 %; Neutrophils # (A) 6.56 10*3/uL (1.80-7.70); Neutrophils % (A) 68.0 %; Platelet Count 182 10*3/uL (140-440); RBC 3.56 10*6/uL (4.10-5.20); RDW 13.4 % (11.5-14.5); WBC 9.65 10*3/uL (4.50-10.00)
--- NOTE | 2024-12-30 09:08 | XR ---
EXAMINATION TYPE: XR foot complete RT DATE OF EXAM: 12/30/2024 COMPARISON: Right ankle radiographs 12/05/2024 HISTORY: Swelling, pain, laceration in november not healing well TECHNIQUE: Frontal, lateral and oblique images of the right foot are obtained. FINDINGS: Diffuse bone demineralization. There is no acute fracture/dislocation evident. The joint s paces appear within normal limits. No osseous erosions. No radiopaque foreign body. Soft tissue swel ling of the dorsal forefoot. Plantar calcaneal enthesophyte. IMPRESSION: 1. No acute fracture or dislocation. 2. No osseous erosions to suggest osteomyelitis. 3. Dorsal forefoot soft tissue swelling. [facility], , 12/30/2024 9:06 AM
[2024-12-30 09:17] LABS: ALT 13 U/L (4-34); African American GFR (CKD) 24 (>60 ml/min/1.73 sqM); Albumin 4.2 g/dL (3.5-5.0); Anion Gap 11 mmol/L; Blood Urea Nitrogen 46 mg/dL (7-17); Calcium 9.6 mg/dL (8.4-10.2); Carbon Dioxide 22 mmol/L (22-30); Chloride 106 mmol/L (98-107); Glucose 98 mg/dL (74-99); Non-African American GFR(CKD) 21 (>60 ml/min/1.73 sqM); Sodium 139 mmol/L (137-145); Total Protein 6.9 g/dL (6.3-8.2)
[2024-12-30 09:19] LABS: AST 27 U/L (14-36); Alkaline Phosphatase 70 U/L (38-126); Potassium 4.9 mmol/L (3.5-5.1)
--- NOTE | 2024-12-30 09:52 | US ---
EXAMINATION TYPE: US venous doppler duplex LE RT DATE OF EXAM: 12/30/2024 9:18 AM COMPARISON: Right lower extremity venous ultrasound 11/17/2020 CLINICAL INDICATION: Female, 89 years old with history of pain in calf, r foot swelling and pain; Rig ht foot swelling TECHNIQUE: The lower extremity deep venous system is examined utilizing real time linear array sonog navya with graded compression, doppler sonography and color-flow sonography. Grayscale, color doppler , spectral doppler imaging performed of the deep veins of the lower extremities FINDINGS: SIDE PERFORMED: Right VESSELS IMAGED: Common Femoral Vein Deep Femoral Vein Greater Saphenous Vein * Femoral Vein Popliteal Vein Small Saphenous Vein * Proximal Calf Veins (* superficial vessels) Right Leg: Negative for DVT; There is normal flow, compressibility, vascular waveforms. IMPRESSION: No evidence for deep vein thrombosis of the right lower extremity. [facility], , 12/30/2024 9:49 AM
[2024-12-30 10:37] VITALS: BP 148/73; PULSE 52; TEMP 97.8
[2024-12-30] MEDS: cefTRIAXone IN SWFI 1,000 MG/10 ML SYRINGE IVP STA (10:37)
== END 2024-12-30 11:13 | disposition home or self-care (01) ==
LOC: EC 08:04
DX: S91.311A Laceration without foreign body, right foot, initial encounter (principal); Z87.891 Personal history of nicotine dependence; Z88.1 Allergy status to other antibiotic agents; Z88.0 Allergy status to penicillin; W25.XXXA Contact with sharp glass, initial encounter
CPT/HCPCS: 36415; 80053; 83605; 85025; 86140; 73630; 93971; 99284; 96374; J0696